=== PATIENT | female | born 1990 | race American Indian/Alaskan Native ===

== ENCOUNTER 2017-11-07 03:49 | Emergency (ER) | payer OTHER ==
[2017-11-07 04:06] VITALS: BP 127/84
[2017-11-07 05:25] LABS: Bacteria,Urine 3+ /HPF (Negative); Bilirubin,Urine NEG (Negative); Blood,Urine LG (Negative); Color,Urine Amber (Yellow); Mucus,Urine FEW /HPF
[2017-11-07 05:26] LABS: HCG Qualitative,Urine Negative (Negative); WBC,Urine > 182.0 /HPF (0.0-6.0)
[2017-11-07] MEDS ORDERED: MOTRIN PO ONE ×2 (05:33→05:42)
[2017-11-07] MEDS ORDERED: PYRIDIUM PO ONE ×2 (05:36→05:42)
[2017-11-07] MEDS ORDERED: MACROBID PO ONE (05:42)
--- NOTE | 2017-11-07 06:25 | Emergency Department Report ---
ED Female HPI - General Chief complaint: Urogenital-Female Stated complaint: BURNING WITH URINATION Time Seen by Provider: 11/07/17 06:01 Source: patient Mode of arrival: Ambulatory Limitations: No Limitations - History of Present Illness Initial comments: 26-year-old -[place] female comes in complaining of one day history of dysuria with urinary incontinence and hematuria. Patient reports that she has recently had a STD checkup when her boyfriend returned back from leave from the . She denies any vaginal discharge denies any fever or chills. She does admit to suprapubic cramping. She reports that she is having extreme dysuria and has tried to take [id number] AZO's which she reports has not helped. Complaint: dysuria -: days(s) (1) Radiation: suprapubic Severity scale (0 -10): 10 Quality: cramping, sharp Consistency: constant Improves with: none Worsens with: urination Are you Now?: No Associated Symptoms: denies other symptoms - Related Data Previous Rx's Medication Instructions Recorded Last Taken Type Nitrofurantoin Monohyd/M-Cryst 100 mg PO BID #20 capsule 11/07/17 Unknown Rx [Macrobid 100 mg Capsule] Phenazopyridine [Pyridium] 200 mg PO TID 2 Days #6 tab 11/07/17 Unknown Rx Allergies Allergy/AdvReac Type Severity Reaction Status Date / Time latex Allergy Hives Verified 11/07/17 04:06 ED Review of Systems ROS: Stated complaint: BURNING WITH URINATION Other details as noted in HPI Constitutional: denies: chills, fever Gastrointestinal: denies: abdominal pain, nausea, diarrhea Genitourinary: urgency, dysuria, frequency, hematuria Musculoskeletal: denies: back pain, joint swelling, arthralgia Skin: denies: rash, lesions ED Past Medical Hx - Past Medical History Previous Medical History?: No - Surgical History Past Surgical History?: No - Social History Smoking Status: Never Smoker Substance Use Type: None - Medications Home Medications: Home Medications Medication Instructions Recorded Confirmed Last Taken Type Nitrofurantoin Monohyd/M-Cryst 100 mg PO BID #20 capsule 11/07/17 Unknown Rx [Macrobid 100 mg Capsule] Phenazopyridine [Pyridium] 200 mg PO TID 2 Days #6 tab 11/07/17 Unknown Rx ED Physical Exam - General Limitations: No Limitations General appearance: alert, in no apparent distress - Head Head exam: Present: atraumatic, normocephalic - GI/Abdominal GI/Abdominal exam: Present: soft, normal bowel sounds - External exam: Present: other (suprapubic tenderness) ED Course Vital Signs 11/07/17 04:02 Temperature 98.4 F Pulse Rate 104 H Respiratory 20 Rate Blood Pressure 127/84 O2 Sat by Pulse 98 Oximetry ED Medical Decision Making - Medical Decision Making Patient has been evaluated by this provider fast track. Patient was given ibuprofen, Pyridium, Macrobid. Discussed patient to increase her water intake by 2 L continue with the Macrobid 100 mg twice a day for the next 10 days as well as continue with the Pyridium 200 mg by mouth 3 times a day 2 days. If symptoms persist or gets worse to follow-up with a primary care provider. Patient verbalized understanding Critical care attestation.: If time is entered above; I have spent that time in minutes in the direct care of this critically ill patient, excluding procedure time. ED Disposition Clinical Impression: UTI (urinary tract infection) Qualifiers: Urinary tract infection type: acute cystitis Hematuria presence: with hematuria Qualified Code(s): N30.01 - Acute cystitis with hematuria Disposition: TO HOME OR SELFCARE Is pt being admited?: No Does the pt Need Aspirin: No Condition: Stable Instructions: Urinary Tract Infection in Women (ED) Additional Instructions: Please complete antibiotics as prescribed. These take Pyridium as needed for urethra spasms. Increase clear fluid intake by 2 L of water. If your symptoms persist or gets worse please follow-up with your primary care provider. Prescriptions: Nitrofurantoin Monohyd/M-Cryst [Macrobid 100 mg Capsule] 100 mg PO BID #20 capsule Phenazopyridine [Pyridium] 200 mg PO TID 2 Days #6 tab Referrals: PRIMARY CARE, [Primary Care Provider] - 3-5 Days [facility] [Provider Group] - 3-5 Days Forms: Work/School Release Form(ED)
== END 2017-11-07 06:30 | disposition home or self-care (01) ==
LOC: ED 03:49
DX: N30.01 Acute cystitis with hematuria (principal); Z91.040 Latex allergy status
CPT/HCPCS: 81001; 81025; 87076; 87086; 87186; 99283